=== PATIENT | male | born 1980 | race Caucasian/White ===

== ENCOUNTER 2020-07-08 12:44 | Observation (INO) ==
[2020-07-08] MEDS ORDERED: *HR* LORazepam 2 MG/ML VIAL IVP ONE (12:56)
[2020-07-08] MEDS ORDERED: 0.9 % Sodium Chloride 1,000 ML IVC ONE (12:57)
[2020-07-08] MEDS ORDERED: Ondansetron 4 MG/2 ML VIAL IVP ONE (13:18)
[2020-07-08 13:30] LABS: Immature Granulocytes % 0.3 % (0-4); Mean Corpuscular HGB Conc 35.6 g/dL (31.6-35.5); Mean Corpuscular Hemoglobin 32.4 pg (28.0-33.3); Red Cell Distribution Width 11.9 % (11.5-14.5)
[2020-07-08 13:32] LABS: Basophils # 0.1 K/mcL (0.0-0.2); Basophils % 1.6 %; Eosinophils % 0.6 %; Hematocrit 54.5 % (37.5-50.1); Hemoglobin 19.4 g/dL (12.9-16.9); Immature Platelets 12.8 % (1.1-6.1); Lymphocytes # 0.9 K/mcL (0.6-4.6); Lymphocytes % 27.9 %; Mean Platelet Volume 11.9 fL (9.4-12.4); Monocytes # 0.3 K/mcL (0.0-1.3); Monocytes % 9.5 %; Neutrophils # 1.9 K/mcL (1.6-8.9); Red Blood Count 5.99 M/mcL (4.19-5.50); Segmented Neutrophils % 60.1 %; White Blood Count 3.2 K/mcL (4.3-11.1)
[2020-07-08 13:48] LABS: Alanine Aminotransferase 123 Units/L (7-52); Albumin 4.1 g/dL (3.5-5.7); Albumin/Globulin Ratio 1.5 (1.1-2.2); Alkaline Phosphatase 62 Units/L (34-104); Aspartate Amino Transferase 95 Units/L (13-39); BUN/Creatinine Ratio 10 (6-26); Bilirubin,Direct 0.4 mg/dL (0.0-0.2); Bilirubin,Indirect 0.8 mg/dL (0.0-1.0); Bilirubin,Total 1.2 mg/dL (0.3-1.0); Blood Urea Nitrogen 13 mg/dL (6-20); Calcium 9.1 mg/dL (8.6-10.3); Carbon Dioxide 25 mEq/L (23-29); Chloride 93 mEq/L (98-107); Ethanol < 10 mg/dL (Less than 10); Globulin 2.7 g/dL (2.4-3.5); Glucose 132 mg/dL (70-105); Lipase 19 Units/L (11-82); Osmolality,Calculated 268 (280-300); Potassium 4.2 mEq/L (3.5-5.1); Sodium 128 mEq/L (136-145); Total Protein 6.8 g/dL (6.4-8.9); eGFR For African Americans > 60 (> 60); eGFR For Non-African Americans 58 (> 60)
[2020-07-08 13:50] LABS: Magnesium 1.6 mg/dL (1.6-2.6); Phosphorous 1.8 mg/dL (2.7-4.5)
[2020-07-08 14:00] LABS: Thyroid Stimulating Hormone 1.38 mcIU/mL (0.340-5.600)
[2020-07-08 14:05] LABS: Platelet Count 70 K/mcL (140-400)
[2020-07-08 14:06] LABS: Platelet Estimate Decreased (Normal); Reactive Lymphocytes Present (Not Present)
[2020-07-08] MEDS ORDERED: *HR* LORazepam 2 MG/ML VIAL IVP PRN ×2 (15:59)
[2020-07-08] MEDS ORDERED: Ondansetron 4 MG/2 ML VIAL IVP PRN (16:11)
[2020-07-08] MEDS ORDERED: Acetaminophen 325 MG TABLET PO PRN (16:11)
[2020-07-08] MEDS ORDERED: 0.9 % Sodium Chloride 1,000 ML IVC SCH (16:15)
[2020-07-08] MEDS ORDERED: Nicotine 2 MG GUM BC PRN (17:05)
[2020-07-08] MEDS: Nicotine 21 MG PATCH.TD24 TD SCH (17:36)
[2020-07-08] MEDS: Folic Acid 1 MG TABLET PO SCH (17:36)
[2020-07-08] MEDS: Thiamine (B-1) 100 MG TABLET PO SCH (17:36)
[2020-07-08] MEDS: Vitamin B Complex/Vit C/Vit E 1 EACH TABLET PO SCH (17:37)
[2020-07-08] MEDS ORDERED: Thiamine (B-1) 100 MG, Folic Acid 1 MG, MVI, adult with vitamin K 10 ML in 0.9 % Sodi... IVPB SCH (18:00)
[2020-07-08 18:19] LABS: Bacteria,Urine Few per hpf (None-Few); Bilirubin,Urine Small (Negative); Blood,Urine Negative (Negative); Clarity,Urine Ex.Turbid (Clear); Color,Urine Dark-Yellow (Yellow); Glucose,Urine (UA) Normal (Normal); Ketones,Urine Negative (Negative); Leukocyte Esterase,Urine Negative (Negative); Mucus,Urine Few per lpf (None-Few); Nitrite,Urine Negative (Negative); Protein,Urine 50 mg/dL (Neg-Trace); RBC,Urine 0-3 per hpf (0-3); Specific Gravity,Urine > 1.030 (1.010-1.025); Squamous Epithelial Cell,Urine Few per hpf (None-Few); Urobilinogen,Urine >=8.0 mg/dL (Normal); WBC,Urine 0-3 per hpf (0-3)
[2020-07-09] MEDS: *HR* LORazepam 2 MG/ML VIAL IVP PRN ×2 (00:12→04:49)
[2020-07-09 07:49] LABS: BUN/Creatinine Ratio 7 (6-26); Blood Urea Nitrogen 8 mg/dL (6-20); Calcium 8.4 mg/dL (8.6-10.3); Carbon Dioxide 25 mEq/L (23-29); Chloride 100 mEq/L (98-107); Glucose 108 mg/dL (70-105); Magnesium 2.1 mg/dL (1.6-2.6); Osmolality,Calculated 271 (280-300); Potassium 3.8 mEq/L (3.5-5.1); Sodium 131 mEq/L (136-145); eGFR For African Americans > 60 (> 60); eGFR For Non-African Americans > 60 (> 60)
[2020-07-09 07:56] LABS: Red Cell Distribution Width 11.9 % (11.5-14.5)
[2020-07-09 07:58] LABS: Hematocrit 47.3 % (37.5-50.1); Hemoglobin 16.3 g/dL (12.9-16.9); Immature Platelets 11.2 % (1.1-6.1); Mean Corpuscular HGB Conc 34.5 g/dL (31.6-35.5); Mean Corpuscular Hemoglobin 31.3 pg (28.0-33.3); Mean Platelet Volume 11.7 fL (9.4-12.4); Red Blood Count 5.2 M/mcL (4.19-5.50); White Blood Count 2.7 K/mcL (4.3-11.1)
[2020-07-09] MEDS: Vitamin B Complex/Vit C/Vit E 1 EACH TABLET PO SCH (08:28)
[2020-07-09] MEDS: Folic Acid 1 MG TABLET PO SCH (08:28)
[2020-07-09] MEDS: Thiamine (B-1) 100 MG TABLET PO SCH (08:28)
[2020-07-09] MEDS: Nicotine 21 MG PATCH.TD24 TD SCH (08:29)
[2020-07-09 11:38] VITALS: BP 109/72
== END 2020-07-09 15:33 | disposition home or self-care (01) ==
LOC: 2ANU 12:44 → EMEROOARM 12:44 → 2ANU 17:24
PROVIDERS: ADMIT Internal Medicine; ATTEND Internal Medicine